=== PATIENT | male | born 1990 | race Caucasian/White ===

== ENCOUNTER 2020-10-31 18:35 | Emergency (ER) | payer SELFPAY ==
[2020-10-31 18:36] VITALS: BP 129/87; PULSE 115; RESP 16; TEMP 36.6; O2SAT 96; BMI 25.9
--- NOTE | 2020-10-31 20:02 | ED.DCSUM_ITS ---
- ER Visit Summary Date of Service: 10/31/20 Chief Complaint: Lump on neck History of Present Illness: The patient is a 30 M with no primary care physician. Reports he has a lump on the right side of his neck that began approximately month ago. Describes an aching pain is 1-10 at worst and is pain- free currently. Is worsened by turning his head to the side or smoking. Patient denies any change in the size of the lump. He denies any fever, chills, cough sore throat, or other complaints. No dental pain. Physical Examination: Vitals: Stable. Afebrile. General: Well-nourished and well-developed. Head: Normocephalic atraumatic. HEENT: There is a solitary enlarged lymph node just lateral to his trachea at the level of the cricoid cartilage. This is approximately 1 cm in diameter. Is freely mobile. There is no overlying erythema or warmth. No pharyngeal erythema or tonsillar exudate. Neck: Supple, no lymphadenopathy. No JVD. Nontender. Cardiovascular: Regular rate and rhythm. No murmurs. Respiratory: No respiratory distress. Clear to auscultation bilaterally. Abdominal: Soft, nontender, nondistended, normal bowel sounds. No guarding, rebound, or peritoneal signs. Back: Nontender. Extremities: Nontender, no edema. Skin: Normal color, no rash. Neurologic: Alert and oriented ?3. Cranial nerves II through XII are intact. Normal strength and sensation. Psych: Normal affect. Emergency Department Course and Treatment: I had a prolonged discussion the patient about the differential. He was given Keflex p.o. Treatment Plan: Patient be discharged with Keflex. Instructed to follow-up with Dr. Toledo in 1 week if not improving. He does understand that if this is not improving that he may require biopsy to rule out lymphoma. Return to the emergency department for any worsening symptoms. Disposition: To home in improved and stable condition. Impression: 1. Cervical lymphadenitis. This note was generated with [employer] dictation software. It may contain incorrect words, spelling, and punctuation that were not noted in review of the chart prior to signing ED Disposition - Plan for ED Patient: Disposition: Home or Assisted Living Instructions: ED ADENITIS Cervical Abx Tx Prescriptions: Cephalexin [Keflex] 500 mg PO Q6 #28 capsule Prescription Printed Referrals: Troy Jenkins MD [STAFF PHYSICIAN] - 1 Week if not improving
[2020-10-31] MEDS: Cephalexin 500 MG Capsule PO (20:09)
== END 2020-10-31 20:28 | disposition home or self-care (01) ==
LOC: ED 20:18
PROVIDERS: Emergency Provider Emergency Medicine
DX: I88.9 Nonspecific lymphadenitis, unspecified (principal); F17.200 Nicotine dependence, unspecified, uncomplicated
CPT/HCPCS: 99282